=== PATIENT | female | born 1995 ===

== ENCOUNTER → 2024-07-23 08:15 | Outpatient (REF) | payer BC, SELFPAY ==
--- NOTE | 2024-07-23 08:22 | ECG_ITS ---
Test Reason : r/o qtc prolongation Blood Pressure : */* mmHG Vent. Rate : 80 BPM Atrial Rate : 80 BPM P-R Int : 150 ms QRS Dur : 72 ms QT Int : 372 ms P-R-T Axes : 36 68 29 degrees QTcB Int : 429 ms Poor data quality, interpretation may be adversely affected Normal sinus rhythm Normal ECG No previous ECGs available Referred By: Joy Avendaño Electronically Signed By: Moses Medrano
--- OUTSIDE RECORDS SUMMARY | 2024-07-23 08:27 | XMS_ITS | Clinical Summary ---
Author Organization [facility] Address [address] [place] [address] Care Team Providers Care Reel Slitter Name Role Phone Unavailable Primary Care Provider Unavailabl e Source Comments PLEASE NOTE, if this patient is a minor, it may be UNLAWFUL to discuss sensitive information that is contained in these records (such as FAMILY PLANNING, MENTAL HEALTH or SUBSTANCE ABUSE) with the minor patient's parent or other person without the patient's specific authorization.[facility] Social History Tobacco Use Types Packs/Day Years Used Date Smoking Tobacco: Never Assessed Social Connections Answer Date Recorded Connectedness 0 01/19/2024 Financial Resource Strain Answer Date R ecorded Financial Resource Strain 0 2020 Stress Answer Date Recorded Stress 0 09/20/2020 Physical Activity Answer Date Recorded Physical Activity 0 09/20/2020 Food Insecurity Answer Date Recorded Food 0 02/02/2024 Transportation Needs Answer Date Record ed Transportation 0 09/20/2020 Housing Stability Answer Date Recorded Housing 0 09/20/2020 Safety and Environment Answer Date Moises rded Safety 0 09/20/2020 Utilities Answer Date Recorded Utilities 0 09/20/2020 Employment Answer Date Recorded Stress 0 01/19/2024 Comments Unknown Sex and Gender Information Value Date Recorded Sex Assigned at Not on file Legal Sex Female 11:22 AM PDT Gender Identity Not on file Sexual Orientation Not on file Plan of Treatment Not on file
[2024-07-23 08:33] LABS: MANUAL DIFF FLAG NO
[2024-07-23 09:07] LABS: Basophils Percent Auto 0.4 % (0-2); Eosinophils Absolute Auto 0.2 X10*3/uL (0.0-0.4); Eosinophils Percent Auto 4.6 % (0-4); Hematocrit 36.8 % (37.0-47.0); Hemoglobin 12.1 g/dl (12.0-16.0); Imm Gran Abs Auto 0.01 X10*3/uL (0.00-0.03); Imm Gran Pct Auto 0.2 % (0.0-0.4); Lymphocytes Absolute Auto 2.7 X10*3/uL (1.2-4.9); Lymphocytes Percent Auto 52.9 % (20-40); Mean Corpuscular HGB Conc 32.9 g/dl (31.0-35.0); Mean Corpuscular Hemoglobin 28.6 pg (27.0-33.0); Mean Platelet Volume 10.2 fL (9.4-12.3); Monocytes Absolute Auto 0.5 X10*3/uL (0.1-1.2); Monocytes Percent Auto 10.2 % (2-11); Neutrophils Absolute Auto 1.6 x10*3/uL (2.0-8.3); Neutrophils Percent Auto 31.7 % (45-73); Platelet Count 214 X10*3/uL (160-400); Red Blood Count 4.23 X10*6/uL (4.20-5.50); Red Cell Distribution Width 14.7 % (11.0-16.0); White Blood Count 5.2 X10*3/uL (4.8-10.8)
[2024-07-23 09:48] LABS: Estimated Average Glucose 105 mg/dL; Hemoglobin A1C 110.0464 umol/L; Hemoglobin A1c % 5.3 % (<6.0)
[2024-07-23 09:57] LABS: Erythrocyte Sedimentation Rate 10 MM/HR (0-20)
[2024-07-23 10:04] LABS: Alanine Aminotransferase 19 U/L (0-31); Albumin Level 4.1 g/dL (3.5-5.0); Alkaline Phosphatase 47 U/L (39-117); Anion Gap 11 (12-20); Aspartate Amino Transferase 26 U/L (5-31); Bilirubin Total 0.9 mg/dL (0.0-1.0); Blood Urea Nitrogen 12 mg/dL (9-16); Calcium 9.1 mg/dL (8.4-10.2); Carbon Dioxide 23 mmol/L (22-29); Chloride 109 mmol/L (96-108); Cholesterol 149 mg/dL (<200); Estimated Glomerular Filt Rate > 60; Ferritin 72 ng/mL (10-122); Glucose Fasting 80 mg/dL (60-99); HDL Cholesterol 36 mg/dL (>40); Iron 78 mcg/dL (30-160); LDL Cholesterol Calculated 96 mg/dL (<100); Magnesium 1.8 mg/dL (1.6-2.6); Percent Iron Saturation 29 % (15-50); Potassium 3.6 mmol/L (3.3-5.1); Sodium 139 mmol/L (135-145); Thyroid Stimulating Hormone 1.55 uIU/mL (0.32-4.0); Total Iron Binding Capacity 273 mcg/dL (228-428); Total Protein 7.5 g/dL (6.5-8.0); Triglycerides 89 mg/dL (<150); Unsaturated Iron Binding 195 ug/dL; Vitamin D 25-OH Total 20.5 ng/mL (>30)
[2024-07-23 10:27] LABS: Folate 12.8 ng/mL (> or = 4.0); Vitamin B12 419 pg/mL (200-900)
[2024-07-24 15:48] LABS: Homocysteine 7.3 umol/L (<10.4)
== END ==
LOC: HO.CARD 08:15
PROVIDERS: PCP Internal Medicine; Visit Provider Psychiatry & Neurology Psychiatry
DX: Z13.1 Encounter for screening for diabetes mellitus (principal); Z13.6 Encounter for screening for cardiovascular disorders; F39 Unspecified mood [affective] disorder
CPT/HCPCS: 36415; 80053; 80061; 82306; 82607; 82728; 82746; 83036; 83090; 83540; 83735; 84425; 84443; 85025; 85652; 93005

== ENCOUNTER → 2024-07-23 08:22 | Outpatient (BNV) | payer BC, SELFPAY | PROVIDERS: PCP Internal Medicine; Visit Provider Internal Medicine Cardiovascular Disease | DX: Z13.6 Encounter for screening for cardiovascular disorders (principal) | CPT/HCPCS: 93010 ==

== ENCOUNTER → 2024-07-27 11:45 | Outpatient (BNV) | payer BC, SELFPAY | PROVIDERS: Visit Provider Psychiatry & Neurology Psychiatry | DX: F33.1 Major depressive disorder, recurrent, moderate (principal); F41.9 Anxiety disorder, unspecified; F39 Unspecified mood [affective] disorder; F43.10 Post-traumatic stress disorder, unspecified; R44.2 Other hallucinations | CPT/HCPCS: 99213 ==

== ENCOUNTER 2024-07-31 11:15 | Outpatient (RCR) | payer BC, SELFPAY ==
[2024-07-13 09:39] VITALS: BMI 33.0
[2024-07-13 09:40] VITALS: BP 96/60; PULSE 84; TEMP 37.4
--- NOTE | 2024-07-13 10:46 | PC.ADMIT ---
Patient is a 29 year old single female who goes by the name of Dimple who was recommended to come to PHP by her PCP. Patient has been struggling with increased depression, anxiety, and PTSD. She reports feeling better now that she is attending PHP as she has attended PHP in the past and found it affective. She reports being triggered by her father and feels much guilt that she could not be with her mother during and after her breast cancer surgery. She was tearful when talking about this stating her mother had to take a bus to go to her surgery as her father would not take her. She stated her father picked her mother up after the surgery only because the hospital would not let her go otherwise. Patient also stated she does not want her mother to know that she is here as she does not want her to worry and her mother does not really understand mental health issues. She also stated her mother has a lot on her plate as she takes care of her brother who has a dx of Schizophrenia. Patient is currently taking a leave of absence from work since June 28, 2024 until July 30, 2024. 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 Patient is alert and oriented x4. She is calm and cooperative. She presented with depressed mood, tearful affect at times. She denied SI however reports she wants to be free from suffering. I don't want to feel anything. Patient denied any plans or intention of killing herself. She was given a copy of her safety plan if needed. Medications reconciled with patient and patient's pharmacy. She reports she is taking her medications as prescribed. She denied any issues with substances.
--- NOTE | 2024-07-18 11:58 | P.HPPSP_ITS ---
[facility] Date of Service: 07/17/24 Chief Complaint: depression Sources of Information: patient interviewed, chart reviewed and crisis/core team assessment reviewed Additional Sources of Information: Patient goes by Dimple [facility] Narrative: Patient is a 29-year-old female with history of depression anxiety relational trauma as well as hallucinatory disturbances related to sleep onset/ transition. . She is self-referred and is familiar with a virtual PHP through an admission 5 years ago. I have been struggling with symptoms of depression, worry. Anxiety is huge. There are stressors aggravating this including my health, family health and less so job issues which may be a problem mostly due to lack of concentration and motivation. [facility] Medical History (Updated 07/19/24 @ 09:25 by Joy Avendaño MD) No known health problems Diagnostics Vital Signs (24Hr): BMI result Body Mass Index 33.0 Meds/Allergies Meds Home Medications ?Medication ?Instructions ?Recorded ?Confirmed ?Type aripiprazole 5 mg tablet 5 mg PO BEDTIME 07/13/24 07/13/24 History cholecalciferol (vitamin D3) 50 50 mcg PO DAILY 07/13/24 07/13/24 History mcg (2,000 unit) capsule (Vitamin D3) Allergies Allergies Allergy/AdvReac Type Severity Reaction Status Date / Time Seasonal Allergies AdvReac Stuffy Verified 07/13/24 09:36 nose, cough, runny nose. Assessment & Plan Assessment & Plan (1) Recurrent moderate major depressive disorder with anxiety: Status: Acute Code(s): F33.1 - Major depressive disorder, recurrent, moderate; F41.9 - Anxiety disorder, unspecified (2) Other specified episodic mood disorder: Status: Acute Code(s): F39 - Unspecified mood [affective] disorder (3) Complex posttraumatic stress disorder: Status: Acute Code(s): F43.10 - Post-traumatic stress disorder, unspecified (4) Hypnagogic hallucinations: Status: Acute Code(s): R44.2 - Other hallucinations Assessment and Plan: hypnagogic > hypnopompic likely related to cPTSD or acute stress reaction r/o parasomnia r/o narcolepsy or other neurological causes Plan Admit to [facility] VS reviewed: afebrile, BP 96/60;?84 bpm continue other regular medications? Routine lab work ordered as indicated EKG, routine for baseline QTc for medication considerations as indicated UDS as indicated [facility] reviewed Continue to monitor as per protocol Patient educated on: diagnosis and medication risk/benefits Informed Consent: understands Reason for continued partial hosp. stay Substantial Risk for: inability to function, rapid decompensation and med/psych decompensation Certification I certify that partial hospital treatment is medically necessary due to the symptoms and problems resulting from the patient's mental illness and the failure to treat the patient at the partial hospital level of care would likely result in the patient requiring inpatient psychiatric care which could not be prevented at a less intensive level of care. Time Spent With Patient Time: Total time managing care of this patient today __90__ minutes.
--- NOTE | 2024-07-18 12:30 | HO.PHP ---
[facility] staff member met with Amaya, due to her stating that she would like to meet with me because she is seeking resources. Amaya expressed that she is currently struggling with financial stressors, in which she is worried about being able to make her next payments and is wondering if the clinician was aware of any resources to help with her financial situation. [facility] staff member explored with Amaya how long she has been working at her currently place of employment. Amaya voiced she has been there for 3 years. PHP staff member expressed that she should qualify for PFML and encouraged her to complete the application. Amaya expressed that she has already received approval for the PFML but is uncertain to who is paying her, her employer or insurance. [facility] staff member disclosed that she is uncertain and encouraged her to contact her HR department to get clarification. Amaya voiced that she is supposed to be getting paid tomorrow through work and is going to see if that comes through first prior to reaching out. [facility] staff member was receptive.
--- NOTE | 2024-07-18 23:57 | P.HPPSP_ITS ---
HPI Date of Service: 07/17/24 Chief Complaint: depression Sources of Information: patient interviewed, chart reviewed and crisis/core team assessment reviewed [facility] Medical History (Updated 07/13/24 @ 09:35 by Trice Guerrero RN) No known health problems Diagnostics Vital Signs (24Hr): BMI result Body Mass Index 33.0 Meds/Allergies Meds Home Medications ?Medication ?Instructions ?Recorded ?Confirmed ?Type aripiprazole 5 mg tablet 5 mg PO BEDTIME 07/13/24 07/13/24 History cholecalciferol (vitamin D3) 50 50 mcg PO DAILY 07/13/24 07/13/24 History mcg (2,000 unit) capsule (Vitamin D3) escitalopram oxalate 5 mg tablet 5 mg PO DAILY 07/13/24 07/13/24 History Allergies Allergies Allergy/AdvReac Type Severity Reaction Status Date / Time Seasonal Allergies AdvReac Stuffy Verified 07/13/24 09:36 nose, cough, runny nose. Assessment & Plan Certification I certify that partial hospital treatment is medically necessary due to the symptoms and problems resulting from the patient's mental illness and the failure to treat the patient at the partial hospital level of care would likely result in the patient requiring inpatient psychiatric care which could not be prevented at a less intensive level of care. Time Spent With Patient Time: Total time managing care of this patient today ____ minutes.
--- NOTE | 2024-07-19 15:28 | HO.PHP ---
Pt's case was opened and reviewed in treatment team.
--- NOTE | 2024-07-24 15:41 | HO.PHP ---
At 2pm pt asked to speak with customs entry writer. Amaya (Dimple) stated she did not feel she will be ready to discharge this . States she will try to push back her [id number] date and asked for more time at [facility]. Pt informed her request will be discussed with team. Pt also shared some of her struggles with a lack of supports and feeling she needs more 1:1 therapy, stated she will call her therapist and her insurance to see in she can still have sessions while at [facility]. Pt stated she has been realizing she has a lot to process around her struggles with adjusting to her work, her community and struggling with feeling lonely, unhappy living in [facility] and feels her trauma is often triggered when at work. 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 Pt was clear, coherent, cooperative, pressured/rapid speech at times, with many ideas and rapid shifts in topic. Pt needed support to slow her thought process as to address concerns separately. Identified this is being a result of not having friends, supports or a therapist to talk to. With reassurance and validation, Pt was open to trying to share more in group about her goals and stressors.
--- NOTE | 2024-07-27 14:02 | HO.PHPPROGNO ---
Subjective Subjective Date of Service: 07/27/24 Reason For Visit: depression Interim History: Patient seen for follow-up. Feel calmer today Denies any side effects from medications. Lexapro at 7.5 mg qd, ABilify continues at 5pm. It's hard for me to recognize..it's hard to recognize when I have felt anxious. ..I'm working on it Says she mostly worries about work. Mood is is getting better, still not quite there, I'm waiting for the sun to come up in my head Denies any SI, denies thoughts of SIB. Sleep, appetite, energy improving. Medication Compliance: Yes Side effects from medications: No Attending Groups: Yes Review of Systems Acute medical concerns: No Mental Status Exam Mental Status Exam Narrative: Alert, oriented, in no acute distress. Calm, cooperative, engaged. No psychomotor agitation or neurovegetative retardation. Eye contact maintained. Mood depressed, affect constricted. Speech normal. Thought process linear, coherent. Thought content related to stressors, transient hopelessness, denies SI or HI. No paranoia or delusional content elicited. No evidence of psychosis. Insight and judgment - fair but adequate. Diagnostics Vital Signs (24Hr): BMI result Body Mass Index 33.0 Assessment & Plan Assessment & Plan (1) Recurrent moderate major depressive disorder with anxiety: Status: Acute Code(s): F33.1 - Major depressive disorder, recurrent, moderate; F41.9 - Anxiety disorder, unspecified (2) Other specified episodic mood disorder: Status: Acute Code(s): F39 - Unspecified mood [affective] disorder (3) Complex posttraumatic stress disorder: Status: Acute Code(s): F43.10 - Post-traumatic stress disorder, unspecified (4) Hypnagogic hallucinations: Status: Acute Code(s): R44.2 - Other hallucinations Assessment and Plan: hypnagogic > hypnopompic likely related to cPTSD or acute stress reaction r/o parasomnia r/o narcolepsy or other neurological causes Plan COntinue PHP increase Lexapro to 10 mg qd continue ABilify 5 mg qd continue other regular medications - vitamin D3? Routine lab work ordered as indicated EKG, routine for baseline QTc for medication considerations as indicated UDS as indicated Continue to monitor Patient educated on: diagnosis and medication risk/benefits Informed Consent: understands Reason for contiued partial hosp. stay Substantial Risk for: med/psych decompensation Certification I certify that partial hospital treatment is medically necessary due to the symptoms and problems resulting from the patient's mental illness and the failure to treat the patient at the partial hospital level of care would likely result in the patient requiring inpatient psychiatric care which could not be prevented at a less intensive level of care. Total time managing care of this patient today __30__ minutes. Discharge Plan Discharge Attending provider: Joy Avendaño Medications: New escitalopram oxalate 10 mg tablet 10 mg PO DAILY Qty: 30 0RF Continued aripiprazole 5 mg Tablet 5 mg PO BEDTIME cholecalciferol (vitamin D3) [Vitamin D3] 50 mcg (2,000 unit) Capsule 50 mcg PO DAILY Discontinued escitalopram oxalate 5 mg tablet 5 mg PO DAILY Stand Alone Forms: Patient Portal Discharge page Print Language: Gabonese
--- NOTE | 2024-07-31 14:59 | P.PNPSP_ITS ---
Subjective Subjective Date of Service: 07/31/24 Reason For Visit: depression Diagnostics Vital Signs (24Hr): BMI result Body Mass Index 33.0 Assessment & Plan Certification I certify that partial hospital treatment is medically necessary due to the symptoms and problems resulting from the patient's mental illness and the failure to treat the patient at the partial hospital level of care would likely result in the patient requiring inpatient psychiatric care which could not be prevented at a less intensive level of care. Total time managing care of this patient today ____ minutes. Discharge Plan Discharge Attending provider: Joy Avendaño Medications: New escitalopram oxalate 10 mg tablet 10 mg PO DAILY Qty: 30 0RF lorazepam 0.5 mg tablet 0.5 mg PO DAILY PRN (Reason: anxiety) Qty: 8 0RF ergocalciferol (vitamin D2) [Vitamin D2] 1,250 mcg (50,000 unit) capsule 1,250 mcg PO QWEEK Qty: 8 0RF Continued aripiprazole 5 mg Tablet 5 mg PO BEDTIME cholecalciferol (vitamin D3) [Vitamin D3] 50 mcg (2,000 unit) Capsule 50 mcg PO DAILY Discontinued escitalopram oxalate 5 mg tablet 5 mg PO DAILY Stand Alone Forms: Patient Portal Discharge page Patient Education: Depression (DC), Post Traumatic Stress Disorder (DC), Anxiety (ED) Print Language: Wolof
== END 2024-07-31 23:59 | disposition home or self-care (01) ==
LOC: HO.PHPA 11:15
PROVIDERS: Visit Provider Psychiatry & Neurology Psychiatry
DX: F33.1 Major depressive disorder, recurrent, moderate (principal); F41.9 Anxiety disorder, unspecified; F39 Unspecified mood [affective] disorder; F43.10 Post-traumatic stress disorder, unspecified; R44.2 Other hallucinations; Z79.899 Other long term (current) drug therapy
CPT/HCPCS: 90853